=== PATIENT | female | born 1945 | race Caucasian/White ===

== ENCOUNTER 2018-12-11 17:49 | Emergency (ER) | payer OTHER ==
[~2018-12-11] VITALS: Ht 157.5 cm; Wt 38.1 kg
[2018-12-11] MEDS ORDERED: UNICOMPLEX M TA1 TA1 PO (18:00)
[2018-12-11] MEDS ORDERED: VITAMIN D3400 UNIT PO (18:00)
[2018-12-11] MEDS ORDERED: VISION FORMULA1 EAC1 PO (18:00)
[2018-12-11] MEDS ORDERED: PRAVACHOL20 MG PO (18:01)
[2018-12-11] MEDS ORDERED: RENA-VITE RX T1 EACH PO (18:01)
[2018-12-11] MEDS ORDERED: B COMPLEX1 EACH PO (18:01)
[2018-12-11] MEDS ORDERED: OXYBUTYNIN 5 MG5 M2 PO (18:01)
[2018-12-11] MEDS ORDERED: EQUATE HEADACHE (18:02)
[2018-12-11] MEDS ORDERED: VITAMIN E400 UNIT PO (18:02)
[2018-12-11] MEDS ORDERED: TRAZODONE HCL100 MG PO (18:02)
[2018-12-11 18:13] LABS: ABSOLUTE EOSINOPHILS 0.1 thou/uL (0.0-0.7); ABSOLUTE LYMPHOCYTES 2.1 thou/uL (0.8-5.3); ABSOLUTE MONOCYTES 0.6 thou/uL (0.0-1.2); ABSOLUTE NEUTROPHILS 4.1 thou/uL (1.6-8.1); BASOPHILS 0.6 %; EOSINOPHILS 1.4 %; HEMATOCRIT 41.1 % (37.0-47.0); HEMOGLOBIN 14.1 gm/dL (12.0-15.0); LYMPHOCYTES 30.4 %; MCH 33.5 pg (26.0-34.0); MCHC 34.2 g/dL (28.0-37.0); MONOCYTES 8.9 %; MPV 8.5 fl. (7.2-11.1); NUCLEATED RBCS 0 /100WBC; PLATELET COUNT* 213 thou/uL (150-400); POLYS 58.7 %; RDW-CV 12.5 % (10.5-14.5); WBC 6.9 thou/uL (4.0-11.0)
[2018-12-11] MEDS ORDERED: XANAX1 MG PO (18:17)
[2018-12-11] MEDS ORDERED: FLEXERIL PO (18:17)
[2018-12-11 18:22] LABS: ANION GAP 11 mmol/L (7-16); BUN 16 mg/dL (7-18); CALCIUM 9.7 mg/dL (8.5-10.1); CHLORIDE 98 mmol/L (98-107); CO2 30 mmol/L (21-32); GLUCOSE 100 mg/dL (70-99); POTASSIUM 3.7 mmol/L (3.5-5.1); SODIUM 139 mmol/L (136-145)
[2018-12-11 18:24] LABS: PROTIME 10.4 Seconds (9.20-11.50)
[2018-12-11 18:37] LABS: ALBUMIN 4.2 g/dL (3.4-5.0); ALKALINE PHOSPHATASE 447 U/L (46-116); LIPASE 235 U/L (73-393); NT-PRO BRAIN NAT PEPTIDE 112 pg/mL (<300); SGOT 550 U/L (15-37); SGPT 755 U/L (30-65); TOTAL BILIRUBIN 0.8 mg/dL (<0.1-1.0); TOTAL PROTEIN 7.9 g/dL (6.4-8.2); TROPONIN-I LEVEL <0.06 ng/mL (<0.06)
[2018-12-11 21:21] LABS: URINE BILIRUBIN NEGATIVE (Negative); URINE BLOOD NEGATIVE (Negative); URINE CLARITY CLEAR; URINE COLOR YELLOW; URINE GLUCOSE-RANDOM NEGATIVE (Negative); URINE KETONES TRACE (Negative); URINE LEUKOCYTES NEGATIVE (Negative); URINE NITRITE NEGATIVE (Negative); URINE PROTEIN NEGATIVE (Negative); URINE UROBILINOGEN 0.2 E.U./dl (0.2-1.0)
[2018-12-11] MEDS ORDERED: OXYCODONE HCL 55 MG PO (23:03)
[2018-12-11 23:22] VITALS: BP 150/75
--- NOTE | 2018-12-12 12:52 | EKG ---
[place] [address] ELECTROCARDIOGRAM REPORT Name: JER FLORENCE Room: [facility]#: [id number] Admission: 12/11/18 Attend Phys: Discharge: 12/11/18 Date of : 45 Report #: [id number] THIS REPORT FOR: //name// [facility] ED Test Date: 2018-12-11 Test Time: 17:55:38 Pat Name: JER GOFFMARIA ANTONIA Department: Room: Gender: F Milieu Counselor: : 1945 Requested By: Bertin Yeboah Order Number: [id number] MD: Anthony Hui Measurements Intervals [place] Rate: 85 P: 85 SC: 115 QRS: 99 QRSD: 80 T: 24 QT: 346 QTc: 412 Interpretive Statements Sinus rhythm Possible left atrial enlargement Borderline short SC interval Right atrial enlargement Right axis deviation No previous ECG available for comparison Electronically Signed On 12-12-2018 12:52:30 CDT by Anthony Hui [email or web address] <ELECTRONICALLY SIGNED> By: Anthony Hui MD, [facility] 12/12/18 1252 [id number] Anthony Hui MD, FACC /EPI
== END 2018-12-11 23:24 | disposition home or self-care (01) ==
LOC: M.ERS 17:49
PROVIDERS: Emergency Medicine
DX: M48.54XA Collapsed vertebra, not elsewhere classified, thoracic region, initial encounter for fracture (principal); R74.0 Nonspecific elevation of levels of transaminase and lactic acid dehydrogenase [LDH]; E78.5 Hyperlipidemia, unspecified; F17.210 Nicotine dependence, cigarettes, uncomplicated; Z88.6 Allergy status to analgesic agent; Z88.8 Allergy status to other drugs, medicaments and biological substances